=== PATIENT | male | born 1995 | race Caucasian/White ===

== ENCOUNTER 2018-02-06 01:30 | Emergency (ER) | payer SELFPAY ==
[2018-02-06] MEDS ORDERED: Ondansetron HCl/PF 4 MG/2 ML Vial ONE (02:25)
== END 2018-02-06 05:52 | disposition home or self-care (01) ==
LOC: ERS 01:30
DX: F10.129 Alcohol abuse with intoxication, unspecified (principal)
CPT/HCPCS: 96361; 96374; J2405